=== PATIENT | male | born 1945 | race Caucasian/White ===

== ENCOUNTER 2018-08-14 12:27 | Emergency (ER) | payer MEDICARE ==
[~2018-08-14] VITALS: Ht 185.4 cm; Wt 93.0 kg
--- NOTE | 2018-08-14 12:50 | NUR ---
THIS IS 73 YO MALE WHO PRESENTS TO THE ER C/O LOC AFTER SLIPPING ON ICE AND HITTING HEAD. PT HAD + LOC. UNK LENGTH OF TIME. PT WAS FOUND BY FRIEND WHO IS AT BEDSIDE. PT IS CURRENTLY PERRLA. AO X 4. SKIN PWD. RESP EVEN AND EQAUL. PT REPORTED NAUSEA. PT WAS MEDICATED WITH 4MG ZOFRAN. REPORT TO KUN PARIKH WHO ASSUMED CARE OF PT.
[2018-08-14] MEDS ORDERED: ONDANSETRON ODT 4 MG ONE (14:03)
[2018-08-14] MEDS ORDERED: ONDANSETRON ODT 4 MG PO ONE (14:30)
[2018-08-14] MEDS ORDERED: MORPHINE SULFATE 4 MG/ML, 1ML IVPush PRN (16:00)
[2018-08-14] MEDS ORDERED: ONDANSETRON 2MG/ML, 2ML ONE (16:04)
[2018-08-14] MEDS ORDERED: MORPHINE SULFATE 4 MG/ML, 1ML ONE (16:05)
[2018-08-14 16:11] LABS: BASOPHILS # (AUTO) 0.04 x10^3/uL (0-0.1); BASOPHILS % (AUTO) 1 % (0-1); EOSINOPHILS # (AUTO) 0.04 x10^3/uL (0-0.4); EOSINOPHILS % (AUTO) 1 % (1-7); LYMPHOCYTES # (AUTO) 0.81 x10^3/uL (1-3.4); LYMPHOCYTES % (AUTO) 10 % (22-44); MD NO; MEAN CORPUSCULAR HEMOGLOBIN 28.5 pg (27.5-34.5); MEAN CORPUSCULAR HGB CONC 32.7 g/dL (33.2-36.2); MEAN CORPUSCULAR VOLUME 87.2 fL (81-97); MEAN PLATELET VOLUME 9.3 fL (7.4-10.4); MONOCYTES # (AUTO) 0.47 x10^3/uL (0.2-0.8); MONOCYTES % (AUTO) 6 % (2-9); NEUTROPHILS # (AUTO) 6.69 x10^3/uL (1.8-6.8); NEUTROPHILS % (AUTO) 83 % (42-75); PLATELET COUNT 178 x10^3/uL (130-400); RED BLOOD COUNT 5.62 x10^6/uL (4.38-5.82); RED CELL DISTRIBUTION WIDTH 15.2 % (9.4-14.8)
[2018-08-14] MEDS ORDERED: ALLO100T30 PO (16:11)
[2018-08-14] MEDS ORDERED: LISI1TAB5 PO (16:19)
[2018-08-14] MEDS ORDERED: CYAN50008 PO (16:20)
[2018-08-14] MEDS ORDERED: ATEN-104 PO (16:20)
[2018-08-14] MEDS ORDERED: ASPI-496 PO (16:21)
[2018-08-14 16:22] VITALS: BP 185/94
[2018-08-14 16:22] LABS: ALBUMIN 3.5 g/dL (3.4-5.0); ANION GAP 5 mmol/L (5-15); CALCIUM 8.5 mg/dL (8.5-10.1); CHLORIDE 102 mmol/L (98-107)
[2018-08-14 16:27] LABS: ALANINE AMINOTRANSFERASE 44 U/L (12-78); ALKALINE PHOSPHATASE 78 U/L (45-117); BILIRUBIN,TOTAL 0.7 mg/dL (0.2-1.0); CREATININE 1.07 mg/dL (0.7-1.3); TOTAL PROTEIN 7.2 g/dL (6.4-8.2)
[2018-08-14] MEDS ORDERED: ONDANSETRON 2MG/ML, 2ML IVPush ONE (16:30)
[2018-08-14] MEDS ORDERED: SODIUM CHLORIDE FLUSH 10ML SYR IVF ONE (17:00)
[2018-08-14] MEDS ORDERED: OMNIPAQUE 350 MG/ML, 100ML BOTTLE ONE (17:27)
--- NOTE | 2018-08-14 18:45 | NUR ---
Patient/Caregiver given discharge instructions and they have confirmed that they understand the instructions. Patient ambulatory with steady gait.
== END 2018-08-14 18:45 | disposition home or self-care (01) ==
LOC: ED 14:18
DX: S29.012A Strain of muscle and tendon of back wall of thorax, initial encounter (principal); S00.93XA Contusion of unspecified part of head, initial encounter; M51.34 Other intervertebral disc degeneration, thoracic region; G89.11 Acute pain due to trauma; W01.0XXA Fall on same level from slipping, tripping and stumbling without subsequent striking against object, initial encounter; Y93.89 Activity, other specified; Y92.89 Other specified places as the place of occurrence of the external cause; Y99.8 Other external cause status; I10 Essential (primary) hypertension
CPT/HCPCS: 36415; 70450; 71045; 71260; 72072; 72125; 74177; 80053; 85025; 96374; 96375; 99284; J2405; Q0162; Q9967

== ENCOUNTER 2018-12-21 22:49 | Emergency (ER) | payer MEDICARE ==
[~2018-12-21] VITALS: Ht 185.4 cm; Wt 94.7 kg
[~2018-12-21 22:49] MED LIST: ALLO100T30 PO; ASPI-496 PO; ATEN-104 PO; CYAN50008 PO; LISI1TAB5 PO
--- NOTE | 2018-12-21 23:15 | NUR ---
Pt is here for elevated bp. Pt reports that bp was elevated at home and has become very concerned. Pt denies any nuero symptoms or pineda at this time. Pt reports not taking any additional medication to control. Pts vss and nadn. Awaiting further orders.
[2018-12-21] MEDS ORDERED: SODIUM CHLORIDE FLUSH 10ML SYR IVF ONE (23:30)
[2018-12-21] MEDS ORDERED: hydrALAzine 20 MG/ML, 1ML IV ONE (23:30)
--- NOTE | 2018-12-21 23:41 | NUR ---
code cart in room, piv placed. and md aware of dipping Heart rate.
--- NOTE | 2018-12-21 23:42 | NUR ---
Report to Everett leyva
--- NOTE | 2018-12-21 23:46 | NUR ---
assumed care of pt report from anirudh
[2018-12-21 23:49] LABS: BASOPHILS # (AUTO) 0.05 x10^3/uL (0-0.1); BASOPHILS % (AUTO) 1 % (0-1); EOSINOPHILS # (AUTO) 0.27 x10^3/uL (0-0.4); EOSINOPHILS % (AUTO) 5 % (1-7); LYMPHOCYTES % (AUTO) 31 % (22-44); MD NO; MEAN CORPUSCULAR HEMOGLOBIN 29.7 pg (27.5-34.5); MEAN CORPUSCULAR HGB CONC 32.8 g/dL (33.2-36.2); MEAN CORPUSCULAR VOLUME 90.7 fL (81-97); MEAN PLATELET VOLUME 9.4 fL (7.4-10.4); MONOCYTES # (AUTO) 0.67 x10^3/uL (0.2-0.8); MONOCYTES % (AUTO) 12 % (2-9); NEUTROPHILS # (AUTO) 2.97 x10^3/uL (1.8-6.8); NEUTROPHILS % (AUTO) 52 % (42-75); PLATELET COUNT 140 x10^3/uL (130-400); RED BLOOD COUNT 5.06 x10^6/uL (4.38-5.82); RED CELL DISTRIBUTION WIDTH 14.5 % (9.4-14.8)
[2018-12-21] MEDS ORDERED: EPINEPHRINE SYRINGE 0.1 MG/ML, 10ML ONE (23:53)
[2018-12-21] MEDS ORDERED: ATROPINE SYRINGE 0.1 MG/ML, 10ML ONE (23:53)
[2018-12-21 23:57] LABS: ANION GAP 7 mmol/L (5-15); CALCIUM 8.5 mg/dL (8.5-10.1); CHLORIDE 107 mmol/L (98-107); CREATININE 1.17 mg/dL (0.7-1.3)
[2018-12-21 23:58] LABS: ALBUMIN 3.3 g/dL (3.4-5.0)
--- NOTE | 2018-12-21 23:59 | NUR ---
pt placed on zole monitor at this time at bs
--- NOTE | 2018-12-22 00:10 | NUR ---
to monitor pt x 1 hour
--- NOTE | 2018-12-22 00:12 | NUR ---
CRASH CART TO BEDSIDE AND EPI AND ATROPINE AT BEDSIDE.
[2018-12-22 00:20] VITALS: BP 161/63
--- NOTE | 2018-12-22 01:06 | NUR ---
PT CONTINUES ASYMPTOMATIC REPORT TO DAYNA TRISTAN
== END 2018-12-22 01:26 | disposition home or self-care (01) ==
LOC: ED 12-22 01:00
DX: I48.92 Unspecified atrial flutter (principal); I10 Essential (primary) hypertension; T50.995A Adverse effect of other drugs, medicaments and biological substances, initial encounter; R00.1 Bradycardia, unspecified; I25.10 Atherosclerotic heart disease of native coronary artery without angina pectoris; Z87.891 Personal history of nicotine dependence
CPT/HCPCS: 36415; 71045; 80048; 82040; 85025; 93005; 99284